=== PATIENT | male | born 1980 | race African-American/Black ===

== ENCOUNTER 2016-07-31 09:42 | Emergency (ER) | payer BC ==
[~2016-07-31] VITALS: Ht 188 cm; Wt 129.5 kg
[~2016-07-31 09:42] MED LIST: NO HOME MEDICATIONS
[2016-07-31] MEDS ORDERED: RISPERDAL 1M1 MG/TAB PO (09:59)
[2016-08-03] MEDS ORDERED: VASOTEC20 MG PO (12:36)
[2016-08-03 12:53] VITALS: BP 185/111; PULSE 75; TEMP 98.4
== END 2016-07-31 12:53 | disposition home or self-care (01) ==
LOC: COL.ER 09:42
DX: S81.852A Open bite, left lower leg, initial encounter (principal); W55.81XA Bitten by other mammals, initial encounter; Y92.008 Other place in unspecified non-institutional (private) residence as the place of occurrence of the external cause; I10 Essential (primary) hypertension; F17.210 Nicotine dependence, cigarettes, uncomplicated; Z23 Encounter for immunization; Z20.3 Contact with and (suspected) exposure to rabies

== ENCOUNTER 2016-08-15 11:35 | Outpatient (RCR) | payer BC ==
[~2016-08-15 11:35] MED LIST changes: +RISPERDAL 1M1 MG/TAB PO; +VASOTEC20 MG PO
[2016-08-15 11:41] VITALS: BP 162/107; PULSE 92; TEMP 98
== END 2016-08-15 13:03 | disposition home or self-care (01) ==
LOC: COL.ER 11:35
DX: Z20.3 Contact with and (suspected) exposure to rabies (principal)

== ENCOUNTER → 2019-10-20 | Outpatient (CLI) | payer BC ==
[~2019-10-20] VITALS: Ht 188 cm; Wt 129.8 kg
[~2019-10-20] MED LIST changes: +CARDURA XL8 MG PO; +FLOMAX 0.40.4 MG/CAP PO; +HCTZ12.5TAB PO
[2019-10-20 07:02] VITALS: BP 165/94; PULSE 79
[2019-10-20 07:53] VITALS: BP 162/99; PULSE 84
[2019-10-20 07:54] VITALS: BP 153/99; PULSE 73
[2019-10-20 07:55] VITALS: BP 163/77; PULSE 74
== END ==
LOC: COL.CARD
DX: R07.9 Chest pain, unspecified (principal); I10 Essential (primary) hypertension
CPT/HCPCS: A9500; J2785

== ENCOUNTER → 2020-08-30 | Outpatient (CLI) | payer OTHER | LOC: MHCPAIN 13:16 | DX: M47.817 Spondylosis without myelopathy or radiculopathy, lumbosacral region (principal); M54.5 Low back pain; M53.3 Sacrococcygeal disorders, not elsewhere classified | CPT/HCPCS: G0463 ==

== ENCOUNTER 2020-12-20 10:45 | Outpatient (RCR) | payer OTHER | END 2021-02-23 | disposition home or self-care (01) | LOC: PT.GENESIS | DX: M47.816 Spondylosis without myelopathy or radiculopathy, lumbar region (principal); M48.061 Spinal stenosis, lumbar region without neurogenic claudication ==